=== PATIENT | female | born 1955 | race Caucasian/White ===

== ENCOUNTER 2016-07-27 14:18 | Observation (INO) ==
[2016-07-27 15:14] LABS: Basophils % 0.6 %; Eosinophils # 0.2 K/mcL (0.0-0.6); Eosinophils % 2.4 %; Hematocrit 37.6 % (35.3-44.9); Hemoglobin 12.6 g/dL (11.5-15.4); Immature Granulocytes % 0.3 % (0-4); Lymphocytes # 2.3 K/mcL (0.6-4.6); Lymphocytes % 37.4 %; Mean Corpuscular HGB Conc 33.5 g/dL (31.6-35.5); Mean Corpuscular Hemoglobin 33.6 pg (28.0-33.3); Mean Corpuscular Volume 100.3 fL (83.0-100.0); Mean Platelet Volume 11.1 fL (9.4-12.4); Monocytes # 0.6 K/mcL (0.0-1.3); Monocytes % 9.8 %; Neutrophils # 3.1 K/mcL (1.6-8.9); Platelet Count 158 K/mcL (140-400); Red Blood Count 3.75 M/mcL (3.82-4.97); Segmented Neutrophils % 49.5 %
--- NOTE | 2016-07-27 15:16 | Emergency Department Note ---
Disposition Clinical Impression: Shortness of breath, Near syncope Disposition: Admitted As Inpatient Condition: Good Time of Disposition: 16:44 General Adult HPI - General Chief complaint: ED Shortness of Breath/Dyspnea Stated complaint: SOB/weakness/nausea Time Seen by Provider: 07/27/16 14:51 Source: patient Mode of arrival: ambulatory Limitations: no limitations Nursing Notes Reviewed: Yes Vital Signs Reviewed: Yes - History of Present Illness HPI Narrative: 61F with PMH of CVA, CKD, seizures, DM, presents with 3-4 days of dyspnea, lightheadedness, occipital RIVAS. These symptoms were at their worst this morning , but persist throughout the day. Symptoms worse with exertion. She states that she is normally able to garden without any symptoms, but today she gets short of breath and lightheaded with even light ambulation. No chest pain or pleuritic symptoms. [place] didn't help her RIVAS. No fever, confusion, blurry vision, cough, abd pain, vomiting/diarrhea, rashes or edema. Pain Scale: 8 - Related Data Home Medications Medication Instructions Recorded Confirmed amLODIPine [Norvasc] 5 mg PO DAILY 03/09/16 07/27/16 Aspirin Enteric Coated [Aspirin EC] 81 mg PO DAILY 07/27/16 07/27/16 Cholecalciferol (D-3) [Vitamin D] 2,000 unit PO DAILY 07/27/16 07/27/16 Clopidogrel [Plavix] 75 mg PO DAILY 07/27/16 07/27/16 DULoxetine [Cymbalta] 30 mg PO QPM 07/27/16 07/27/16 Duloxetine HCl [Cymbalta] 60 mg PO QAM 07/27/16 07/27/16 Gabapentin [Neurontin] 400 mg PO HS 07/27/16 07/27/16 HYDROcodone/Acet 5/325 mg [[place] 1 tab PO BID PRN 07/27/16 07/27/16 5-325 mg] Levothyroxine [Synthroid] 100 mcg PO 0630 07/27/16 07/27/16 Metoprolol [Lopressor] 25 mg PO BID 07/27/16 07/27/16 Omeprazole [PriLOSEC] 40 mg PO DAILY 07/27/16 07/27/16 Simvastatin [Zocor] 20 mg PO HS 07/27/16 07/27/16 hydrOXYzine pamoate [HydrOXYzine 25 mg PO TID PRN 07/27/16 07/27/16 Pamoate] lamoTRIgine [Lamictal] 50 mg PO QPM 07/27/16 07/27/16 lamoTRIgine [Lamictal] 100 mg PO QAM 07/27/16 07/27/16 traZODone [TraZODone] 50 mg PO HS 07/27/16 07/27/16 Allergies Allergy/AdvReac Type Severity Reaction Status Date / Time Diclofenac [From Voltaren] Allergy Rash Verified 11/20/14 12:55 moxifloxacin [From Avelox] Allergy See Verified 11/20/14 13:18 Comments sulfamethoxazole Allergy See Verified 11/20/14 13:18 [From Bactrim] Comments trimethoprim [From Bactrim] Allergy See Verified 11/20/14 12:55 Comments Past Medical History - Past Medical History Medical history: Reports: CVA, diabetes, hyperlipidemia, hypertension, thyroid disease Psychiatric history: Reports: anxiety, depression PLATE INSPECTOR history: Reports: no PLATE INSPECTOR history - Social History Smoking Status: Former smoker Smokeless Tobacco Status: No Alcohol use: Reports: none Drug use: Reports: none Physical Exam - General Limitations: no limitations General appearance: alert Course - Reevaluation(s) Reevaluation #1: EKG nonischemic. Chest x-ray is negative. CBC and BMP and urinalysis were unremarkable. TSH is pending. Patient was signed out to nurse practitioner Pat with hospitalist. She is aware TSH is pending. Time: 16:44 Vital Signs Temperature 97.4 F L 07/27/16 14:21 Pulse Rate 56 07/27/16 14:21 Respiratory Rate 18 07/27/16 14:21 Blood Pressure 147/81 07/27/16 14:21 O2 Sat by Pulse Oximetry 99 07/27/16 14:21 Temperature 98.1 F 07/27/16 18:18 Pulse Rate 51 07/27/16 18:18 Respiratory Rate 16 07/27/16 18:18 Blood Pressure 157/91 07/27/16 18:18 O2 Sat by Pulse Oximetry 98 07/27/16 19:32 Oxygen Delivery Oxygen Delivery Room Air Medical Decision Making - Lab Data Result diagrams: 07/27/16 15:02 06/14/17 15:02 Lab Results 07/27/16 07/27/16 07/27/16 Range/Units 15:02 15:02 15:02 WBC 6.3 (4.3-11.1) K/mcL RBC 3.75 L (3.82-4.97) M/mcL Hgb 12.6 (11.5-15.4) g/dL Hct 37.6 (35.3-44.9) % MCV 100.3 H (83.0-100.0) fL MCH 33.6 H (28.0-33.3) pg MCHC 33.5 (31.6-35.5) g/dL RDW 13.0 (11.5-14.5) % Plt Count 158 (140-400) K/mcL MPV 11.1 (9.4-12.4) fL Immature Gran % 0.3 (0-4) % Seg Neutrophils % 49.5 % Lymphocytes % 37.4 % Monocytes % 9.8 % Eosinophils % 2.4 % Basophils % 0.6 % Neutrophils # 3.1 (1.6-8.9) K/mcL Lymphocytes # 2.3 (0.6-4.6) K/mcL Monocytes # 0.6 (0.0-1.3) K/mcL Eosinophils # 0.2 (0.0-0.6) K/mcL Basophils # 0.0 (0.0-0.2) K/mcL Sodium 135 L (136-145) mEq/L Potassium 4.3 (3.5-4.5) mEq/L Chloride 104 (98-109) mEq/L Carbon Dioxide 24 (19-29) mEq/L BUN 20 (7-20) mg/dL Creatinine 1.34 H (0.57-1.11) mg/dL Est GFR ( Amer) 48 L (> 60) Est GFR (Non-Af Amer) 40 L (> 60) BUN/Creatinine Ratio 15 (6-26) Glucose 90 (70-99) mg/dL Calculated Osmolality 282 (280-300) Calcium 9.3 (8.6-10.8) mg/dL Troponin I 0.02 (0-0.03) ng/mL B-Natriuretic Peptide (0-100) pg/mL TSH 1.062 (0.350-4.840) mcIU/mL Urine Color (Yellow) Urine Clarity (Clear) Urine pH (5.0-8.0) pH Units Ur Specific [place] (1.010-1.025) Urine Protein (Neg-Trace) mg/dL Urine Glucose (UA) (Normal) mg/dL Urine Ketones (Negative) mg/dL Urine Blood (Negative) Urine Nitrite (Negative) Urine Bilirubin (Negative) Urine Urobilinogen (Normal) mg/dL Ur Leukocyte Esterase (Negative) Ur Culture Indicated? (NO) 07/27/16 07/27/16 Range/Units 15:02 15:40 WBC (4.3-11.1) K/mcL RBC (3.82-4.97) M/mcL Hgb (11.5-15.4) g/dL Hct (35.3-44.9) % MCV (83.0-100.0) fL MCH (28.0-33.3) pg MCHC (31.6-35.5) g/dL RDW (11.5-14.5) % Plt Count (140-400) K/mcL MPV (9.4-12.4) fL Immature Gran % (0-4) % Seg Neutrophils % % Lymphocytes % % Monocytes % % Eosinophils % % Basophils % % Neutrophils # (1.6-8.9) K/mcL Lymphocytes # (0.6-4.6) K/mcL Monocytes # (0.0-1.3) K/mcL Eosinophils # (0.0-0.6) K/mcL Basophils # (0.0-0.2) K/mcL Sodium (136-145) mEq/L Potassium (3.5-4.5) mEq/L Chloride (98-109) mEq/L Carbon Dioxide (19-29) mEq/L BUN (7-20) mg/dL Creatinine (0.57-1.11) mg/dL Est GFR ( Amer) (> 60) Est GFR (Non-Af Amer) (> 60) BUN/Creatinine Ratio (6-26) Glucose (70-99) mg/dL Calculated Osmolality (280-300) Calcium (8.6-10.8) mg/dL Troponin I (0-0.03) ng/mL B-Natriuretic Peptide 103 H (0-100) pg/mL TSH (0.350-4.840) mcIU/mL Urine Color Yellow (Yellow) Urine Clarity Clear (Clear) Urine pH 6.5 (5.0-8.0) pH Units Ur Specific [place] 1.009 L (1.010-1.025) Urine Protein Negative (Neg-Trace) mg/dL Urine Glucose (UA) Normal (Normal) mg/dL Urine Ketones Negative (Negative) mg/dL Urine Blood Negative (Negative) Urine Nitrite Negative (Negative) Urine Bilirubin Negative (Negative) Urine Urobilinogen Normal (Normal) mg/dL Ur Leukocyte Esterase Negative (Negative) Ur Culture Indicated? NO (NO) - EKG Data EKG #1 EKG attestation: Yes I reviewed and interpreted this EKG. EKG results narrative: EKG shows sinus bradycardia at 49 with normal axis and intervals. No ST elevation or depression. No T-wave inversions or flattening. No pathologic Q waves. Initial EKG was similar, but had arm leads reversed. This is a normal EKG. Attestation Statement - Attestation Attestation: I, Donny Bond, examined this patient and my medical decision-making was reviewed with the DOG CONTROL OFFICER/PA/Advanced Practice Nurse/Resident Physician. I agree with the documented findings, disposition and treatment plan as described except to the extent set forth below. 61-year-old female presents with concerns of increasing dyspnea with exertion over the past 3-4 days. Patient states she becomes short of breath, diaphoretic and nauseated with exertion. No history of cardiac disease in the past however she has a history of a CVA and chronic kidney disease and diabetes. Patient does not describe chest pain while in the emergency department. Her initial EKG showed sinus pericardia with rate of [address] elevations in 1 [address] depressions. Repeat EKG showed sinus bradycardia with a rate of [address] elevations or other evidence of ischemia. Initial troponin was negative. Secondary the patient's symptoms we will admit to the hospital for further evaluation of chest pain to rule out ACS.
[2016-07-27 15:25] LABS: Calcium 9.3 mg/dL (8.6-10.8); Potassium 4.3 mEq/L (3.5-4.5)
[2016-07-27] MEDS ORDERED: 0.9 % Sodium Chloride 1,000 ML IVC ONE (15:33)
[2016-07-27 15:50] LABS: Bilirubin,Urine Negative (Negative); Blood,Urine Negative (Negative); Clarity,Urine Clear (Clear); Color,Urine Yellow (Yellow); Glucose,Urine (UA) Normal (Normal); Ketones,Urine Negative (Negative); Leukocyte Esterase,Urine Negative (Negative); Nitrite,Urine Negative (Negative); PH,Urine 6.5 pH Units (5.0-8.0); Protein,Urine Negative (Neg-Trace); Specific Gravity,Urine 1.009 (1.010-1.025); Urobilinogen,Urine Normal (Normal)
[2016-07-27 16:45] LABS: Thyroid Stimulating Hormone 1.062 mcIU/mL (0.350-4.840)
[2016-07-27] MEDS ORDERED: Ondansetron 4 MG/2 ML VIAL IVP PRN (17:49)
[2016-07-27] MEDS ORDERED: Acetaminophen 325 MG TABLET PO PRN (17:49)
[2016-07-27] MEDS ORDERED: *HR* OxyCODONE Immed Rel 5 MG TABLET PO PRN (17:49)
[2016-07-27] MEDS ORDERED: Naloxone 0.4 MG/ML INJ IVP PRN (17:49)
[2016-07-27] MEDS ORDERED: *HR* Morphine 2 MG/ML SYRINGE IVP PRN (17:49)
--- NOTE | 2016-07-27 17:54 | Internal Med History&Physical ---
Date of Encounter: 07/27/16 Time of Encounter: 17:54 Assessment and Plan (1) Near syncope Status: Acute Presents with dizziness without syncope. Telemetry monitoring, cycle troponins. Check 2-D echocardiogram to assess for replaced aortic valve, left ventricular systolic function. Hold beta mark due to bradycardia. Patient is also noted to be multiple antidepressants and medications for chronic pain syndrome at home which may cause dizziness. We will hold narcotics, Cymbalta, trazodone, gabapentin at this time. Check CT head. Physical therapy evaluation. (2) Head ache Status: Acute Reports right-sided occipital headache and neck pain. Will obtain CT head to rule out acute infarcts/bleed/mass given her dizziness and headache. Supportive care. Qualifiers: Headache type: other headache syndrome Qualified Code(s): G44.89 - Other headache syndrome (3) CKD (chronic kidney disease) Status: Chronic Serum creatinine noted to be at baseline. Continue to monitor closely. Qualifiers: Chronic kidney disease stage: stage 3 (moderate) Qualified Code(s): N18.3 - Chronic kidney disease, stage 3 (moderate) (4) Diabetes mellitus Status: Chronic Diet controlled, not on medications at home. Continue Accu-Chek blood glucose monitoring. Diabetic diet. Qualifiers: Diabetes mellitus type: type 2 Diabetes mellitus complication status: with kidney complications Diabetes mellitus complication detail: with chronic kidney disease Diabetes mellitus snf insulin use: without intermediate frame tender use Chronic kidney disease stage: stage 3 (moderate) Qualified Code(s): E11.22 - Type 2 diabetes mellitus with diabetic chronic kidney disease; N18.3 - Chronic kidney disease, stage 3 (moderate) (5) Essential hypertension Status: Chronic Blood pressure noted to be well controlled. Hold beta mark and continue Norvasc at this time. Does not meet criteria for orthostatic hypotension. (6) Hypothyroidism Status: Chronic TSH noted to be within normal limits. Resume home dose of levothyroxine. Qualifiers: Hypothyroidism type: unspecified Qualified Code(s): E03.9 - Hypothyroidism , unspecified (7) TIA (transient ischemic attack) Status: Inactive Qualifiers: Transient cerebral ischemia type: unspecified Qualified Code(s): G45.9 - Transient cerebral ischemic attack, unspecified (8) H/O aortic valve replacement with porcine valve Status: Chronic Internal Medicine - H&P: HPI Chief complaint: Dizziness, fatigue Admitted From: Emergency Dept Plans for Post Hospital Care: Home History of present illness: Ms. Boyle is a 61 year old female with history of diabetes, CVA, hypothyroidism, who presents with complaints of generalized weakness and dizziness. Patient reports feeling well until about 3-4 days back when she started developing generalized weakness, dizziness which is fairly constant, associated with nausea and occipital headache, mainly right-sided and neck pain and right facial paresthesias. No chest pain, shortness of breath, syncope. No fever, chills, vomiting, abdominal pain or diarrhea. No hearing loss, tinnitus or nystagmus. No focal weakness and she is able to ambulate at home. No similar previous episodes. No sick contacts or recent travel. Patient does take Norvasc and metoprolol at home for blood pressure control. Past Med Surg Social Fam HX - Past Medical History Medical history: CVA, diabetes, hyperlipidemia, hypertension, renal disease, thyroid disease Psychiatric history: anxiety, depression - Past Surgical History Surgical History: cholecystectomy, heart valve replacement (Bioprosthetic aortic valve replacement), hysterectomy - Social History Smoking Status: Former smoker Smokeless Tobacco Status: No Alcohol use: none Drug use: none Current living situation: Home, With Family Activity Level: Independent ambulation Recent Out of Country Travel Within the Last 8 Weeks: No - Family History Mother Hx Family Endocrine Disorder: Yes (DM) Father Hx Family Cardiac Disorders: Yes Internal Medicine - H&P: Meds amLODIPine [Norvasc] 5 mg PO DAILY 03/09/16 [History] Aspirin Enteric Coated [Aspirin EC] 81 mg PO DAILY 07/27/16 [History] Cholecalciferol (D-3) [Vitamin D] 2,000 unit PO DAILY 07/27/16 [History] Clopidogrel [Plavix] 75 mg PO DAILY 07/27/16 [History] DULoxetine [Cymbalta] 30 mg PO QPM 07/27/16 [History] Duloxetine HCl [Cymbalta] 60 mg PO QAM 07/27/16 [History] Gabapentin [Neurontin] 400 mg PO HS 07/27/16 [History] Levothyroxine [Synthroid] 100 mcg PO 0630 07/27/16 [History] Omeprazole [PriLOSEC] 40 mg PO DAILY 07/27/16 [History] Simvastatin [Zocor] 20 mg PO HS 07/27/16 [History] hydrOXYzine pamoate [HydrOXYzine Pamoate] 25 mg PO TID PRN 07/27/16 [History] lamoTRIgine [Lamictal] 50 mg PO QPM 07/27/16 [History] lamoTRIgine [Lamictal] 100 mg PO QAM 07/27/16 [History] traZODone [TraZODone] 50 mg PO HS 07/27/16 [History] Allergies Diclofenac [From Voltaren] Allergy (Verified 11/20/14 12:55) Rash moxifloxacin [From Avelox] Allergy (Verified 11/20/14 13:18) See Comments seizures sulfamethoxazole [From Bactrim] Allergy (Verified 11/20/14 13:18) See Comments seizures trimethoprim [From Bactrim] Allergy (Verified 11/20/14 12:55) See Comments All Systems PM: A 10-system review of systems was performed and is negative for pertinent findings except as documented above in the HPI. - Constitutional Constitutional: no chills, no fever(s), no night sweats - EENT Eyes: no change in vision, no discharge, no pain, no photophobia Ears: no ear discharge, no ear pain, no tinnitus Nose, mouth and throat: no dysphagia, no nasal discharge, no neck pain, no sore throat - Cardiovascular Cardiovascular ROS IM: lightheadedness - Respiratory Respiratory: no cough, no dyspnea, no wheezing, no excessive phlegm production - Gastrointestinal Gastrointestinal: nausea - Genitourinary Genitourinary: no change in urinary stream, no dysuria, no flank pain, no hematuria - Musculoskeletal Musculoskeletal ROS IM: no numbness, no tingling - Integumentary Integumentary IM: no rash, no unusual bruising - Neurological Neurological ROS: dizziness, no confusion, no convulsions, no focal weakness, no numbness, no tingling, no tremor(s) - Hematologic/Lymphatic Hematologic/Lymphatic: no easy bruising - Constitutional Vitals: Temp Pulse Resp BP Pulse Ox 97.4 F L 53 18 162/97 100 07/27/16 14:21 07/27/16 17:37 07/27/16 17:37 07/27/16 17:37 07/27/16 17:37 General appearance: Present: A&O X 3, answers questions appropriately - Neck Neck exam general surgery: Present: supple, trachea midline. Absent: lymphadenopathy Additional comments: No nuchal rigidity but noted to have posterior neck tenderness over the cervical vertebrae - Respiratory Respiratory exam: Present: CTAB. Absent: accessory muscle use, rales, rhonchi, wheezes - Cardiovascular Cardiovascular exam: Present: bradycardia, RRR, +S1, +S2. Absent: diastolic murmur, gallop, rubs, systolic murmur - GI/Abdominal GI/Abdominal exam: Present: normal bowel sounds, soft, no peritoneal signs. Absent: distended, tenderness - Extremities Exam Extremities exam: Present: full ROM, warm, radial pulses palpable and symetrical. Absent: calf tenderness, cyanotic, pedal edema - Neurological Exam Neurological exam: Present: CN II-XII intact, oriented X3, no focal deficits. Absent: pronater drift, facial droop, speech deficit - Skin Skin exam: Present: dry, intact Internal Med - H&P Results - Labs CBC & Chem 7: 07/28/16 04:30 07/28/16 04:30 - EKG Data -: EKG Interpreted by Myself EKG shows normal: sinus rhythm Rate: bradycardia
[2016-07-27] MEDS ORDERED: lamoTRIgine 100 MG TABLET PO SCH (18:00)
[2016-07-27] MEDS ORDERED: traZODone 50 MG TABLET PO SCH (21:00)
[2016-07-28 05:16] LABS: Basophils % 0.7 %; Eosinophils # 0.2 K/mcL (0.0-0.6); Eosinophils % 4.1 %; Hematocrit 37.8 % (35.3-44.9); Hemoglobin 12.5 g/dL (11.5-15.4); Immature Granulocytes % 0.4 % (0-4); Lymphocytes # 2.4 K/mcL (0.6-4.6); Lymphocytes % 41.5 %; Mean Corpuscular HGB Conc 33.1 g/dL (31.6-35.5); Mean Corpuscular Hemoglobin 33.4 pg (28.0-33.3); Mean Corpuscular Volume 101.1 fL (83.0-100.0); Monocytes # 0.6 K/mcL (0.0-1.3); Monocytes % 10.4 %; Neutrophils # 2.4 K/mcL (1.6-8.9); Platelet Count 151 K/mcL (140-400); Red Blood Count 3.74 M/mcL (3.82-4.97); Segmented Neutrophils % 42.9 %
[2016-07-28 05:47] LABS: Calcium 9.5 mg/dL (8.6-10.8); Chol/HDL Ratio 2.5 (0-4.9)
[2016-07-28 05:51] LABS: Potassium 5.7 mEq/L (3.5-4.5)
[2016-07-28] MEDS ORDERED: amLODIPine 5 MG TABLET PO SCH (09:00)
[2016-07-28] MEDS ORDERED: lamoTRIgine 100 MG TABLET PO SCH (09:00)
[2016-07-28] MEDS ORDERED: Cholecalciferol (D-3) 1,000 UNIT TABLET PO SCH (09:00)
[2016-07-28 10:51] VITALS: BP 127/73
--- NOTE | 2016-07-28 14:35 | Discharge Summary ---
Date of Encounter: 07/28/16 Time of Encounter: 14:33 - Discharge Diagnosis (1) Head ache Priority: Primary Status: Acute Qualifiers: Headache type: other headache syndrome Qualified Code(s): G44.89 - Other headache syndrome (2) CKD (chronic kidney disease) Priority: Secondary Status: Chronic Qualifiers: Chronic kidney disease stage: stage 3 (moderate) Qualified Code(s): N18.3 - Chronic kidney disease, stage 3 (moderate) (3) Diabetes mellitus Priority: Secondary Status: Chronic Qualifiers: Diabetes mellitus type: type 2 Diabetes mellitus complication status: with kidney complications Diabetes mellitus complication detail: with chronic kidney disease Diabetes mellitus snf insulin use: without snf use Chronic kidney disease stage: stage 3 (moderate) Qualified Code(s): E11.22 - Type 2 diabetes mellitus with diabetic chronic kidney disease; N18.3 - Chronic kidney disease, stage 3 (moderate) (4) Essential hypertension Priority: Secondary Status: Chronic (5) Hypothyroidism Priority: Secondary Status: Chronic Qualifiers: Hypothyroidism type: unspecified Qualified Code(s): E03.9 - Hypothyroidism , unspecified (6) H/O aortic valve replacement with porcine valve Priority: Secondary Status: Chronic (7) Near syncope Priority: Primary Status: Acute (8) CVA (cerebral vascular accident) Priority: Secondary Status: Inactive Qualifiers: CVA mechanism: other Qualified Code(s): I63.8 - Other cerebral infarction - Discharge Medications Home Medications: amLODIPine [Norvasc] 5 mg PO DAILY 03/09/16 [History] Aspirin Enteric Coated [Aspirin EC] 81 mg PO DAILY 07/27/16 [History] Cholecalciferol (D-3) [Vitamin D] 2,000 unit PO DAILY 07/27/16 [History] Clopidogrel [Plavix] 75 mg PO DAILY 07/27/16 [History] DULoxetine [Cymbalta] 30 mg PO QPM 07/27/16 [History] Duloxetine HCl [Cymbalta] 60 mg PO QAM 07/27/16 [History] Gabapentin [Neurontin] 400 mg PO HS 07/27/16 [History] Levothyroxine [Synthroid] 100 mcg PO 0630 07/27/16 [History] Omeprazole [PriLOSEC] 40 mg PO DAILY 07/27/16 [History] Simvastatin [Zocor] 20 mg PO HS 07/27/16 [History] hydrOXYzine pamoate [HydrOXYzine Pamoate] 25 mg PO TID PRN 07/27/16 [History] lamoTRIgine [Lamictal] 50 mg PO QPM 07/27/16 [History] lamoTRIgine [Lamictal] 100 mg PO QAM 07/27/16 [History] traZODone [TraZODone] 50 mg PO HS 07/27/16 [History] Allergies/Adverse Reactions: Allergies Diclofenac [From Voltaren] Allergy (Verified 11/20/14 12:55) Rash moxifloxacin [From Avelox] Allergy (Verified 11/20/14 13:18) See Comments seizures sulfamethoxazole [From Bactrim] Allergy (Verified 11/20/14 13:18) See Comments seizures trimethoprim [From Bactrim] Allergy (Verified 11/20/14 12:55) See Comments Procedures/tests Complete & Pending: Procedures Performed prior 72 hours Category Date Time Status CT head/brain wo con [CT] Routine Cat Scan 07/27/16 17:51 Completed EV echocardiogram Routine Y 07/28/16 17:52 Completed Date of admission: 07/27/16 16:46 Primary care physician: Matt Mclean Consults: 07/27/16 17:51 Consult to Occupational Therapy [CONS] Routine Comment: Evaluate, develop and implement POC Reason for Consult: Generalized weakness Consult to Physical Therapy [CONS] Routine Comment: Evaluate, develop and implement POC Reason for Consult: Generalized weakness Discharging clinician: Fauzia Germain Anticipated date of discharge: 07/28/16 - Patient Status Disposition: Home, Self-Care Condition: Good Functional capacity at discharge: independent ambulation Overall status at discharge: patient is back to baseline - Discharge Instructions Instructions: Chronic Kidney Disease (DC) Follow Up With: Matt Mclean DO [Primary Care Provider] - 08/25/16 10:00 am - Diet and Activity Activity: resume usual activities as tolerated Diet: diabetic diet, low fat, low cholesterol, low salt diet Hospital course: Ms. Boyle is a 61 year old female with history of CVA, fibromyalgia and depression was admitted with complaints of near syncope and occipital headache. Initial workup including labs, EKG and chest x-ray done in the emergency room showed no acute abnormality. Blood pressure was noted to be normal with some bradycardia with heart rate in 50s. She was noted to be on beta mark, which has been held since admission. No evidence of orthostatic hypotension. She was noted to be on multiple medications which could cause dizziness including occasional narcotics, gabapentin, trazodone, Cymbalta, Norvasc and metoprolol. She was monitored on telemetry, which was uneventful. Serial troponins remained normal. Echocardiogram was done which showed preserved ejection fraction with mild concentric LVH and mild left ventricle diastolic dysfunction. CT head was done Which showed no acute changes but old right cerebellar infarct. Patient was evaluated by physical and occupational therapy and noted to have no needs. Patient feels better today and is medically stable for discharge home with outpatient follow-up. - Time Spent with Patient Total time spent providing and/or coordinating discharge services: Greater than 30 minutes (45 min) - Constitutional Vitals: Temp Pulse Resp BP Pulse Ox 97.8 F 57 15 127/73 96 07/28/16 10:49 07/28/16 10:49 07/28/16 10:49 07/28/16 10:49 07/28/16 10:49 General appearance: Present: A&O X 3, answers questions appropriately - Cardiovascular Cardiovascular exam: Present: RRR, +S1, +S2. Absent: diastolic murmur, gallop, rubs, systolic murmur
--- NOTE | 2016-07-28 14:45 | Electrocardiograph Report ---
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
--- NOTE | 2016-07-28 15:03 | Electrocardiograph Report ---
[address] [place] [address] Test Date: 2016-07-27 Pat Name: Yeimi Boyle Department: 103 Room: 3B23 Gender: F Social Services Designee: [facility] : 1955 Requested By: Nicole Mcintosh Order Number: [id number] Reading MD: Brady Sears MD Measurements Intervals [place] Rate: 51 P: 118 ND: 149 QRS: 146 QRSD: 88 T: 111 QT: 437 QTc: 413 Interpretive Statements SINUS BRADYCARDIA BASELINE ARTIFACT Electronically Signed On 07-28-2016 15:01:26 EDT by Brady Sears MD
== END 2016-07-28 15:15 | disposition home or self-care (01) ==
LOC: EMEROO 14:18 → 3BNU 14:18
PROVIDERS: ADMIT Internal Medicine; ATTEND Nurse Practitioner Family